=== PATIENT | female | born 1995 | race African-American/Black ===

== ENCOUNTER 2025-04-01 17:51 | Emergency (ER) | payer OTHER, SELFPAY ==
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
[2025-04-01 17:51] VITALS: BP 123/78; PULSE 76; RESP 18; TEMP 36.9; O2SAT 98
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
[2025-04-01] MEDS: HYDROmorphone HCL INJ (*CRX) 2 MG/ML VIAL 0.5 MG IM (18:15)
[2025-04-01] MEDS: ONDANSETRON HCL ODT 4 MG TABLET PO (18:16)
[2025-04-01 18:51] VITALS: BP 118/77; PULSE 81; RESP 16; O2SAT 98
--- NOTE | 2025-04-01 19:05 | PC.NURSE ---
PATIENT IS SUPINE AT THIS TIME. RIGID C COLLAR CHANGED OUT TO APPROPRIATE SIZE. PATIENT IS ALERT AND ORIENTED X 3. PATIENT IS MOVING ALL EXTREMITIES. ADDITIONAL WARM BLANKETS HAVE BEEN PLACED. 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 CALL LIGHT IN REACH.
[2025-04-01] MEDS: HYDROmorphone HCL INJ (*CRX) 2 MG/ML VIAL 0.5 MG IV PUSH (19:24)
[2025-04-01 19:35] VITALS: BP 129/77; PULSE 79; RESP 16; O2SAT 99
== END 2025-04-01 19:35 | disposition short-term general hospital (02) ==
PROVIDERS: Emergency Provider Internal Medicine Critical Care Medicine
DX: S12.200A Unspecified displaced fracture of third cervical vertebra, initial encounter for closed fracture (principal); S12.300A Unspecified displaced fracture of fourth cervical vertebra, initial encounter for closed fracture; S00.81XA Abrasion of other part of head, initial encounter; J45.909 Unspecified asthma, uncomplicated; V89.2XXA Person injured in unspecified motor-vehicle accident, traffic, initial encounter; V49.50XA Passenger injured in collision with unspecified motor vehicles in traffic accident, initial encounter
CPT/HCPCS: 70450; 71045; 72125; 72170; 96372; 96374; 99285; A9270; J1171